=== PATIENT | female | born 1980 | race Caucasian/White ===

== ENCOUNTER → 2023-01-09 09:38 | Outpatient (BNVA) | payer OTHER, SELFPAY | PROVIDERS: PCP Nurse Practitioner Family; Visit Provider Nurse Practitioner Family | DX: I10 Essential (primary) hypertension (principal); E78.5 Hyperlipidemia, unspecified; R53.83 Other fatigue | CPT/HCPCS: 80053; 80061; 84439; 84443; 84481; 85025 ==